=== PATIENT | male | born 1960 | race Caucasian/White ===

== ENCOUNTER → 2017-01-01 | Outpatient (CLI) | payer OTHER | LOC: FIMAGING 14:55 | PROVIDERS: ATTEND Physician Assistant | DX: Z09 Encounter for follow-up examination after completed treatment for conditions other than malignant neoplasm (principal) ==

== ENCOUNTER 2017-01-23 07:04 | Day surgery (SDC) | payer OTHER ==
[2017-01-23] MEDS ORDERED: FAMOTIDINE 20 MG TAB PO ONE (07:17)
[2017-01-23] MEDS ORDERED: NS 1,000 ML IV ONE (07:17)
[2017-01-23] MEDS ORDERED: ASPIRIN EC 325 MG TAB PO ONE ×2 (07:17→07:50)
[2017-01-23] MEDS ORDERED: diphenhydrAMINE 25 MG CAP PO ONE ×2 (07:17→07:50)
[2017-01-23] MEDS ORDERED: DIAZEPAM 5 MG TAB PO ONE (07:17)
--- NOTE | 2017-01-23 07:41 | CPEKG ---
Heart Rate: 67 RR Interval: 896 P-R Interval: 144 QRSD Interval: 90 QT Interval: 408 QTC Interval: 431 P [place]: 58 QRS [place]: 72 T Wave [place]: 46 EKG Severity - NORMAL ECG - EKG Impression: SINUS RHYTHM EKG Impression: NON-SPECIFIC ST ELEVATION INFERIOR LEADS Electronically Signed By: Sandro Jameson 23-Jan-2017 09:09:17
[2017-01-23] MEDS ORDERED: FAMOTIDINE 20 MG TAB ONE (07:50)
[2017-01-23] MEDS ORDERED: DIAZEPAM 5 MG TAB ONE (07:51)
[2017-01-23 07:58] LABS: % IMMATURE GRANULYOCYTES 0.2 % (0.0-1.1); ABSOLUTE IMMATURE GRANULOCYTES 0.01 10^3/uL (0.00-0.10); ADD DIFF? NO; ADD MORPH? NO; ADD SCAN? NO; ATYPICAL LYMPHOCYTE FLAG 10 (0-99); FRAGMENT RBC FLAG 0 (0-99); HEMATOCRIT 40.9 % (40.0-51.0); HEMOGLOBIN 14.7 g/dL (13.7-17.5); LEFT SHIFT FLG 0 (0-99); LIPEMIA HEMOLYSIS FLAG 90 (0-99); MEAN CELL HEMOGLOBIN 31.3 pg (27.9-34.1); MEAN CELL HEMOGLOBIN CONCENTR. 35.9 g/dL (32.4-36.7); MEAN CELL VOLUME 87.2 fL (81.5-99.8); MEAN PLATELET VOLUME 11.1 fL (8.7-11.7); PLATELET CLUMPS FLAG 0 (0-99); PLATELET COUNT 167 10^3/uL (150-400); RED BLOOD CELL COUNT 4.69 10^6/uL (4.40-6.38); RED CELL DISTRIBUTION WIDTH 11.4 % (11.5-15.2)
[2017-01-23 08:07] LABS: INR 0.99 (0.83-1.16)
[2017-01-23 08:36] LABS: ANION GAP 10 mEq/L (8-16); CALCIUM 9.3 mg/dL (8.5-10.4); CARBON DIOXIDE 26 mEq/l (22-31); CHLORIDE 104 mEq/L (97-110); CHOLESTEROL 153 mg/dL (140-220); CHOLESTEROL/HDL RATIO 4.25 RATIO (1.00-4.97); CREATININE 0.8 mg/dL (0.7-1.3); GLOMERULAR FILTRATION RATE > 60; GLUCOSE 94 mg/dL (70-100); HIGH DENSITY LIPOPROTEIN 36 mg/dL (40-65); LDL/HDL RATIO 2.72 RATIO (1.00-3.64); LOW DENSITY LIPOPROTEIN 98 mg/dL (80-100); MAGNESIUM 2.2 mg/dL (1.6-2.3); NON-HIGH DENSITY LIPOPROTEIN 117 mg/dL (90-129); POTASSIUM 3.9 mEq/L (3.5-5.2); SODIUM 140 mEq/L (134-144); TRIGLYCERIDE 98 mg/dL (40-150); VERY LOW DENSITY LIPOPROTEINS 19 mg/dL (8-25)
[2017-01-23] MEDS ORDERED: LIDOCAINE 1% 30 ML SDV ONE (08:42)
[2017-01-23] MEDS ORDERED: fentaNYL 100 MCG/2 ML INJ ONE (08:43)
[2017-01-23] MEDS ORDERED: MIDAZOLAM 2 MG/2 ML VIAL ONE (08:43)
[2017-01-23] MEDS ORDERED: VERAPAMIL 5 MG/2 ML VIAL ONE (08:43)
[2017-01-23] MEDS ORDERED: HEPARIN 10,000 UNIT/10 ML MDV ONE (08:43)
[2017-01-23] MEDS ORDERED: IOPAMIDOL (ISOVUE-370) 150 ML BTL IV ONE (08:43)
[2017-01-23] MEDS ORDERED: ATROPINE SULFATE 1 MG/10 ML SYR IVP PRN (10:48)
[2017-01-23] MEDS ORDERED: OXYCODONE/APAP 5/325 TAB PO PRN (10:48)
[2017-01-23] MEDS ORDERED: NITROGLYCERIN 0.4 MG BTL SL PRN (10:48)
[2017-01-23] MEDS ORDERED: HYDROCODONE/APAP 5/325 TAB PO PRN (10:48)
[2017-01-23] MEDS ORDERED: ONDANSETRON 4 MG/2 ML VIAL IVP PRN (10:48)
--- NOTE | 2017-01-23 10:51 | PDDXCAT ---
Diagnostic Cath Note - . Date: 01/23/17 [employer]: Zachary Indication: other ( moderate risk stress test, class 2 chest pain) - Procedure Access: left wrist Procedure: left heart catheterization, coronary angiography, left ventriculogram - Materials Left Heart Cath size: 5F Left Heart Cath materials: standard multipack (JL4, JR4, pigtail), JL3.5 - Findings-Left Heart Catheterization LM: normal LAD: normal LCX: normal RCA: dominant: Normal EDP: 15 mm of mercury LVEF: 65% Wall motion: normal Complications: none Estimated blood loss: <50ml Closure method: TR Band Assessment: Angiographically normal coronary arteries. Normal left ventricular systolic function with normal filling pressures. Plan: Primary prevention Patient Problems: Problems Problem Status Onset Abnormal stress test Acute
== END 2017-01-23 14:10 | disposition home or self-care (01) ==
LOC: FCATH 07:04
PROVIDERS: ATTEND Internal Medicine Interventional Cardiology
PROC: B2111ZZ Fluoroscopy of Multiple Coronary Arteries using Low Osmolar Contrast (ICD-10-PCS; principal; 2017-01-23)
PROC: 4A023N7 Measurement of Cardiac Sampling and Pressure, Left Heart, Percutaneous Approach (ICD-10-PCS; principal; 2017-01-23)
PROC: B2151ZZ Fluoroscopy of Left Heart using Low Osmolar Contrast (ICD-10-PCS; principal; 2017-01-23)
DX: R07.9 Chest pain, unspecified (principal); R94.39 Abnormal result of other cardiovascular function study; Z82.49 Family history of ischemic heart disease and other diseases of the circulatory system; E78.5 Hyperlipidemia, unspecified; E03.9 Hypothyroidism, unspecified; Z21 Asymptomatic human immunodeficiency virus [HIV] infection status; Z87.442 Personal history of urinary calculi
CPT/HCPCS: 93005; 93458; C1769; J1644; J2250; J3010; Q9967

== ENCOUNTER 2017-09-08 13:14 | Emergency (ER) | payer OTHER ==
[2017-09-08 13:45] VITALS: BP 134/96
--- NOTE | 2017-09-08 14:59 | EDPHY ---
H & P Time Seen by Provider: 09/08/17 14:56 HPI/ROS: Chief complaint. Eyelid swelling HPI. 57-year-old male presents emergency department with swelling to the underside lid of the right eye for 1 day. He had upper respiratory symptoms for 1 week. Now swelling under the right eye. Dull pain around the right eye. Left eye slightly itchy. There is slight goop in the morning from the right eye today. No change in his vision. Currently no sore throat, fever cough, chest pain, shortness of breath. Patient is HIV positive but has undetectable viral load. He has had a occult chalazions a few years ago. He has chronic dry eyes. No eye surgery. No glaucoma. He does wear corrective lenses. ROS Constitutional. no fever/chills, no weakness Eyes. No visual symptoms however swelling and discomfort to the lid under the right eye ENT. no sore throat, no nasal drainage Cardiovascular. no chest pain Respiratory. no shortness of breath, no cough Abdominal. no abdominal pain, no nausea/vomiting, no diarrhea . no problems urinating MS. no calf pain/swelling, no neck/back pain, no joint pain Skin. no rash Lymph. no swollen glands Neuro. no headache, no dizziness, no difficulty walking or with speech Past Medical/Surgical History: Past medical history significant for HIV, hypothyroid, dyslipidemia Social History: Single, nonsmoker, no alcohol Smoking Status: Never smoked Physical Exam: General Appearance: Alert well-developed male mild distress vital signs are stable Eyes: Pupils equal and round no pallor or injection. There appears to be a stye to the medial lower lid of the right eye. The swelling and erythema is somewhat diffuse and not obviously pointing either inward or out of the eye. Left eye normal ENT, Mouth: Mucous membranes are moist. Respiratory: There are no retractions, lungs are clear to auscultation. Cardiovascular: Regular rate and rhythm. Gastrointestinal: Abdomen is soft and nontender, no masses, bowel sounds normal. Neurological: Awake and alert, sensory and motor exams grossly normal. Skin: Warm and dry, no rashes. Musculoskeletal: Neck is supple nontender. Extremities symmetrical, full range of motion. Psychiatric: Patient is oriented X 3, there is no agitation. Constitutional: Initial Vital Signs Temperature (C) 36.7 C 09/08/17 13:42 Heart Rate 80 09/08/17 13:42 Respiratory Rate 17 09/08/17 13:42 Blood Pressure 134/96 H 09/08/17 13:42 O2 Sat (%) 95 09/08/17 13:42 O2 Delivery Mode Room Air Allergies/Adverse Reactions: No Known Allergies Allergy (Verified 09/08/17 13:39) Home Medications: Medication Instructions Recorded Intelence 08/06/11 Levothyroxine 08/06/11 Docusate Sodium [Colace 100 MG (*)] 100 mg PO TID #20 cap 06/15/16 Descovy 200-25 mg Tablet 09/08/17 Ezetimibe 09/08/17 Isentress 09/08/17 Rosuvastatin Calcium 09/08/17 Sulfamethox/Tmp 800/160 mg 1 tab PO BID #10 tab 09/08/17 [Bactrim Ds] Medical Decision Making ED Course/Re-evaluation: I consulted and discussed the case with Dr. Jarrett, ophthalmology. However there was a delay in for him calling us back and the patient was anxious to leave. I reviewed treatment plan in the [place] guide of antimicrobial therapy and started the patient on Bactrim. Dr. clark of us says he typically would use cephalexin four times daily. Staph and strep coverage with the Bactrim is quite good. I also consulted and discussed the case Dr. Maldonado, infectious Disease who will also follow the patient The patient and I discussed treatment plan, criteria for return, importance of follow-up and further evaluation. He expresses understanding agreement Differential Diagnosis: I believe this is a stye or hordeolum. I considered conjunctivitis. I because of his HIV I considered opportunistic infections as well. No evidence for periorbital cellulitis Departure - Departure Disposition: Home, Routine, Self-Care Clinical Impression: Hordeolum external Qualifiers: Laterality: right Eyelid: lower Qualified Code(s): H00.012 - Hordeolum externum right lower eyelid Condition: Good Instructions: Maged (ED) Additional Instructions: Warm compresses to lower lid of your right eye 15 min at a time 4 times daily next 2 days. Bactrim twice daily for the next 5 days. Return for worsening symptoms including visual change, fever. Recheck by Ophthalmology in 1-2 days without fail. Referrals: Lina Maldonado MD [Primary Care Provider] - As per Instructions Pawel Jarrett MD [Medical Doctor] - 1-2 days without fail Prescriptions: Sulfamethox/Tmp 800/160 mg [Bactrim Ds] 1 tab PO BID #10 tab
[2017-09-08 15:59] VITALS: PULSE 81; RESP 16; TEMP 98.2; O2SAT 98
== END 2017-09-08 15:57 | disposition home or self-care (01) ==
DX: H00.012 Hordeolum externum right lower eyelid (principal); B20 Human immunodeficiency virus [HIV] disease

== ENCOUNTER → 2018-01-24 | Outpatient (CLI) | payer OTHER | LOC: FIMAGING 14:30 | PROVIDERS: ATTEND Internal Medicine | DX: N43.3 Hydrocele, unspecified (principal); N50.3 Cyst of epididymis ==

== ENCOUNTER → 2018-02-20 | Outpatient (CLI) | payer OTHER | LOC: FIMAGING 14:32 | PROVIDERS: ATTEND Internal Medicine | DX: R05 Cough (principal); B20 Human immunodeficiency virus [HIV] disease; J90 Pleural effusion, not elsewhere classified ==